=== PATIENT | male | born 1945 | race Caucasian/White ===

== ENCOUNTER 2022-11-23 09:22 | Emergency (ER) | payer OTHER ==
[~2022-11-23] VITALS: Ht 177.8 cm; Wt 172.4 kg
[2022-11-23 09:26] VITALS: BP_SYST 139
[2022-11-23] MEDS ORDERED: LIDOCAINE/EPI 1% 1:100000 20 ML VIAL ONE (09:27)
--- NOTE | 2022-11-23 09:30 | NUR ---
PT ARRIVES WITH BLEEDING UMBILCIAL HERNIA, DR SMITH AT BEDSIDE AND SUTURING BEING PERFORMED. PT TOLERATING IT WELL.
--- NOTE | 2022-11-23 09:50 | NUR ---
PT BIB BLS FROM HOME C/O BLEEDING AND PAIN FROM UPPER UMBILICAL HERNIA. BLS REPORTS LOST ABOUT 100CC BLOOD. PT HAS OOZING LARGE UMBILICAL HERNIA THAT BLEEDS FROM THE UPPER PORTION. PTS VSS RESTING IN BED WITH RAILS UP
--- NOTE | 2022-11-23 09:55 | NUR ---
DR SMITH CALLED TO BEDSIDE DUE TO BLEEDING, PRESSURE DRESSING PLACED TO UMBILICAL HERNIA. BLEEDING CONTROLLED.
[2022-11-23 10:20] VITALS: BP_SYST 139
--- NOTE | 2022-11-23 10:24 | NUR ---
Patient given written and verbal discharge instructions and verbalizes understanding. ER MD SMITH discussed with patient the results and treatment provided. Patient in stable condition. ID arm band removed. Patient educated on VERICOSE VEINS and to follow up with PMD. Pain Scale 0 . Opportunity for questions provided and answered.
== END 2022-11-23 10:24 | disposition home or self-care (01) ==
LOC: SED 09:22
DX: K42.9 Umbilical hernia without obstruction or gangrene (principal); J44.9 Chronic obstructive pulmonary disease, unspecified; Z79.899 Other long term (current) drug therapy
CPT/HCPCS: 99283

== ENCOUNTER 2024-04-17 19:05 | Inpatient (IN) | payer OTHER ==
[~2024-04-17] VITALS: Ht 172.7 cm; Wt 144.7 kg
[~2024-04-17 19:05] MED LIST: ALBU2.5V7 INH; ALBU90AE INH; ALLO100T PO; ATOR-449 PO; BUME1TAB8 PO; FLUT16SP16 NS; FLUT1BLS5 IH; LOSA100T24 PO; METF-379 PO; METO25TA6 PO; MONT-40 PO; NITSL SL; OMEP-268 PO; POTA-197 PO; PRAM2.254 PO; TOLT4CAP PO; VITD2000 PO
[2024-04-17 19:07] VITALS: BP_SYST 124; PULSE 112; RESP 20; TEMP 101.1; O2SAT 94
[2024-04-17 19:56] LABS: ABG O2 SAT% ESTIMATE 95.5 % (94.0-98.0); ALLEN'S TEST POSITIVE (P); BLOOD GAS BASE EXCESS 5.7 mmol/L (-2.0-3.0); BLOOD GAS PCO2 37.8 mmHg (35.0-48.0); BLOOD GAS PH 7.503 (7.350-7.450); BLOOD GAS PO2 70.5 mmHg (83.0-108.0)
[2024-04-17] MEDS: methylPREDNISolone SOD SUCC/PF 62.5 MG/ML VIAL IVP ONE (20:02)
[2024-04-17] MEDS: cefTRIAXone 1 GM IVPB PREMIX 50 ML IV ONE (20:03)
[2024-04-17 20:40] LABS: HEMOGLOBIN 13.3 g/dL (14.0-18.0); MEAN CORPUSCULAR HEMOGLOBIN 23 pg (27-31); MEAN CORPUSCULAR HGB CONC 32 % (32-36); MEAN CORPUSCULAR VOLUME 73 fL (79.0-98.0); RED BLOOD CELL COUNT(AUTO) 5.76 MIL/uL (4.2-6.2); RED CELL DISTRIBUTION WIDTH 20.5 % (9.0-15.0); WHITE BLOOD COUNT (AUTO) 28.8 K/uL (4.8-10.8)
[2024-04-17 20:44] LABS: ALANINE AMINOTRANSFERASE 44 U/L (12-78); ALBUMIN 3.2 g/dL (3.4-4.8); ANION GAP 7 (5-15); ASPARTATE AMINOTRANSFERASE 37 U/L (10-37); BILIRUBIN,DIRECT 0.3 mg/dL (0.0-0.3); CALCIUM 8.9 mg/dL (8.4-11.0); CARBON DIOXIDE 34 mmol/L (23-29); CHLORIDE 104 mmol/L (98-107); CREATININE 2.01 mg/dL (0.55-1.30); GLUCOSE 140 mg/dL (74-106); SODIUM SERUM 145 mmol/L (136-145); TOTAL PROTEIN, SERUM 7.3 g/dL (6.4-8.3); UREA NITROGEN, BLOOD 34 mg/dL (8-21)
[2024-04-17] MEDS: FUROSEMIDE 40 MG/4 ML VIAL IVP ONE (21:01)
[2024-04-17] MEDS ORDERED: AZITHROMYCIN 500 MG/VIAL (ZITHROMAX) IV ONE (21:04)
[2024-04-17] MEDS: MAGNESIUM SULFATE 50 ML IV ONE (21:07)
[2024-04-17 21:22] LABS: PLATELET COUNT (AUTO) 48 K/uL (130-430)
[2024-04-17 21:29] LABS: BAND % (MANUAL) 8 % (0-6)
[2024-04-17 21:30] LABS: ANISOCYTOSIS 1+; BASOPHILS % (MANUAL) 0 % (0-2); EOSINOPHILS % (MANUAL) 0 % (0-7); HYPOCHROMASIA 1+; LYMPHOCYTES % (MANUAL) 1 % (20-46); MONOCYTES % (MANUAL) 4 % (0-11); OVALOCYTES FEW; PLATELET ESTIMATE DECREASED (ADEQUATE); STOMATOCYTES FEW
[2024-04-17 23:09] LABS: BILIRUBIN,URINE NEGATIVE (NEGATIVE); CLARITY/URINE CLEAR (CLEAR); COLOR,URINE YELLOW (YELLOW); GLUCOSE,URINE NEGATIVE (NEGATIVE); KETONES,URINE NEGATIVE (NEGATIVE); LEUKOCYTE ESTERASE ,URINE NEGATIVE (NEGATIVE); NITRITE, URINE NEGATIVE (NEGATIVE); PROTEIN URINE 1+ (NEGATIVE); UROBILINOGEN,URINE 0.2 (0.2-1.0)
[2024-04-17] MEDS: AZITHROMYCIN 500 MG in NS 250 ML IV ONE (23:37)
[2024-04-17 23:41] LABS: BLOOD, URINE TRACE (NEGATIVE)
[2024-04-17 23:45] LABS: WBC,URINE 0-3 /HPF (0-3)
[2024-04-17 23:46] LABS: BACTERIA,URINE None Seen /HPF (None Seen)
[2024-04-17] MEDS: ENOXAPARIN SODIUM 120 MG/0.8 ML SYRINGE SUBCUT ONE (23:48)
[2024-04-17] MEDS ORDERED: ENOXAPARIN SODIUM 120 MG/0.8 ML SYRINGE ONE (23:49)
[2024-04-18] MEDS ORDERED: HYDR-3927 PO (00:02)
[2024-04-18] MEDS ORDERED: PRAM0.5T10 PO (00:02)
[2024-04-18] MEDS ORDERED: NYST15PO4 TP (00:02)
[2024-04-18] MEDS ORDERED: FURO40TA5 PO (00:02)
[2024-04-18] MEDS: D5/0.45 NS 1,000 ML IV SCH (00:47)
[2024-04-18 01:09] VITALS: BP_SYST 128; PULSE 94; RESP 20; TEMP 98.2; O2SAT 91
[2024-04-18 07:00] VITALS: O2SAT 95
[2024-04-18 08:00] VITALS: BP_SYST 135; PULSE 90; RESP 20; TEMP 97.6; O2SAT 96
[2024-04-18] MEDS: METHYLPREDNISOLONE SOD SUCC 40 MG/ML VIAL IVP SCH (08:26)
[2024-04-18] MEDS ORDERED: NITROGLYCERIN 0.4 MG TAB.SUBL SL PRN (12:00)
[2024-04-18] MEDS ORDERED: TOLTERODINE TARTRATE ER 2 MG CAP.ER.24H PO SCH (12:00)
[2024-04-18 12:33] VITALS: BP_SYST 126; PULSE 91; RESP 20; TEMP 99; O2SAT 92
[2024-04-18 12:55] LABS: CKMB RELATIVE INDEX 0.4 (0.0-2.9)
[2024-04-18 15:03] LABS: BILIRUBIN,URINE NEGATIVE (NEGATIVE); BLOOD, URINE 2+ (NEGATIVE); CLARITY/URINE CLEAR (CLEAR); COLOR,URINE YELLOW (YELLOW); GLUCOSE,URINE TRACE (NEGATIVE); KETONES,URINE NEGATIVE (NEGATIVE); LEUKOCYTE ESTERASE ,URINE NEGATIVE (NEGATIVE); NITRITE, URINE NEGATIVE (NEGATIVE); PROTEIN URINE 2+ (NEGATIVE); UROBILINOGEN,URINE 0.2 (0.2-1.0)
[2024-04-18 15:23] LABS: BACTERIA,URINE FEW /HPF (None Seen); RBC,URINE 0-3 /HPF (0-3); WBC,URINE 0-3 /HPF (0-3)
[2024-04-18 16:00] VITALS: BP_SYST 141; PULSE 91; RESP 18; TEMP 97.4; O2SAT 97
[2024-04-18 20:00] VITALS: BP_SYST 137; PULSE 85; RESP 20; TEMP 98.5; O2SAT 100
[2024-04-18] MEDS ORDERED: cefTRIAXone 1 GM VIAL IM SCH (20:00)
[2024-04-18] MEDS ORDERED: cefTRIAXone 1 GM VIAL IV SCH (20:00)
[2024-04-18] MEDS: CEFTRIAXONE SOD 1 GM/ D5W 50 ML IV SCH (20:18)
[2024-04-18] MEDS: oxyBUTYnin chloride 5 MG TABLET PO SCH (20:19)
[2024-04-18] MEDS: FUROSEMIDE 40 MG TABLET PO SCH (20:19)
[2024-04-18] MEDS: HYDROcodone/ACETAMIN 10-325 MG TAB PO PRN (20:19)
[2024-04-18] MEDS: METOPROLOL TARTRATE 25 MG TABLET PO SCH (20:20)
[2024-04-18] MEDS: BUMETANIDE 1 MG TABLET PO SCH (20:26)
[2024-04-18] MEDS: NYSTATIN 15 GM TOPICAL POWDER TP SCH (20:27)
[2024-04-18] MEDS: AZITHROMYCIN 500 MG in NS 250 ML IV SCH (21:29)
[2024-04-18] MEDS ORDERED: AZITHROMYCIN 250 MG in NS 250 ML IV SCH (23:00)
[2024-04-18] MEDS: ALLOPURINOL 100 MG TABLET (ZYLOPRIM) PO SCH (23:18)
[2024-04-19] VITALS (7 sets, daily range): BP systolic 119–148; PULSE 71–82; RESP 17–19; TEMP 98–98.3; O2SAT 92–99
[2024-04-19 07:32] LABS: URINE SODIUM, RANDOM 24 mmol/L (40-220)
[2024-04-19 08:16] LABS: BASOPHILS % (AUTO) 0.1 % (0.0-2.0); HEMATOCRIT 38.2 % (36-54); HEMOGLOBIN 11.5 g/dL (14.0-18.0); MEAN CORPUSCULAR HEMOGLOBIN 23 pg (27-31); MEAN CORPUSCULAR HGB CONC 30 % (32-36); MEAN CORPUSCULAR VOLUME 75 fL (79.0-98.0); MONOCYTES # (AUTO) 0.8 K/uL (0.0-1.0); MONOCYTES % (AUTO) 3.1 % (1.7-9.3); NEUTROPHILS # (AUTO) 22.6 K/uL (1.8-7.7); RED BLOOD CELL COUNT(AUTO) 5.08 MIL/uL (4.2-6.2); RED CELL DISTRIBUTION WIDTH 20.7 % (9.0-15.0); WHITE BLOOD COUNT (AUTO) 24.3 K/uL (4.8-10.8)
[2024-04-19 08:28] LABS: ANION GAP 9 (5-15); CALCIUM 8.6 mg/dL (8.4-11.0); CARBON DIOXIDE 31 mmol/L (23-29); CHLORIDE 106 mmol/L (98-107); CREATININE 1.57 mg/dL (0.55-1.30); GLUCOSE 231 mg/dL (74-106); SODIUM SERUM 146 mmol/L (136-145); UREA NITROGEN, BLOOD 33 mg/dL (8-21)
[2024-04-19 08:42] LABS: PLATELET COUNT (AUTO) 46 K/uL (130-430)
[2024-04-19 08:54] LABS: NEUTROPHILS % (AUTO) 92.8 % (40.0-70.0)
[2024-04-19] MEDS: NYSTATIN 15 GM TOPICAL POWDER TP SCH (21:12)
[2024-04-19] MEDS: AMPICILLIN SODIUM/SULBACTAM NA 3 GM in NS 100 ML IV SCH (21:19)
[2024-04-20 01:45] VITALS: PULSE 50
[2024-04-20 03:01] VITALS: PULSE 65
[2024-04-20 07:17] LABS: BASOPHILS % (AUTO) 0.1 % (0.0-2.0); HEMATOCRIT 39.1 % (36-54); HEMOGLOBIN 11.9 g/dL (14.0-18.0); LYMPHOCYTES # (AUTO) 0.9 K/uL (1.0-5.5); LYMPHOCYTES % (AUTO) 5.8 % (20.5-51.5); MEAN CORPUSCULAR HEMOGLOBIN 23 pg (27-31); MEAN CORPUSCULAR HGB CONC 31 % (32-36); MEAN CORPUSCULAR VOLUME 74 fL (79.0-98.0); MONOCYTES # (AUTO) 0.3 K/uL (0.0-1.0); MONOCYTES % (AUTO) 2.4 % (1.7-9.3); NEUTROPHILS # (AUTO) 13.3 K/uL (1.8-7.7); NEUTROPHILS % (AUTO) 91.7 % (40.0-70.0); PLATELET COUNT (AUTO) 52 K/uL (130-430); RED BLOOD CELL COUNT(AUTO) 5.27 MIL/uL (4.2-6.2); RED CELL DISTRIBUTION WIDTH 20.2 % (9.0-15.0); WHITE BLOOD COUNT (AUTO) 14.6 K/uL (4.8-10.8)
[2024-04-20 07:28] LABS: ERYTHROCYTE SEDIMENTATION RATE 118 MM/HR (0-15)
[2024-04-20 07:40] LABS: ALANINE AMINOTRANSFERASE 42 U/L (12-78); ALBUMIN 2.4 g/dL (3.4-4.8); ANION GAP 10 (5-15); ASPARTATE AMINOTRANSFERASE 32 U/L (10-37); CALCIUM 8.3 mg/dL (8.4-11.0); CARBON DIOXIDE 29 mmol/L (23-29); CHLORIDE 105 mmol/L (98-107); CREATININE 1.45 mg/dL (0.55-1.30); GLUCOSE 233 mg/dL (74-106); PHOSPHORUS 2.7 mg/dL (2.7-4.5); POTASSIUM 3.7 mmol/L (3.5-5.1); SODIUM SERUM 144 mmol/L (136-145); TOTAL BILIRUBIN 0.4 mg/dL (0.0-1.0); TOTAL PROTEIN, SERUM 6.5 g/dL (6.4-8.3); UREA NITROGEN, BLOOD 39 mg/dL (8-21)
[2024-04-20 08:00] VITALS: BP_SYST 141; PULSE 74; RESP 20; TEMP 98.1; O2SAT 98
[2024-04-20 12:42] VITALS: BP_SYST 138; PULSE 70; RESP 19; TEMP 98.2; O2SAT 98
[2024-04-20 16:49] VITALS: BP_SYST 140; PULSE 66; RESP 18; TEMP 98; O2SAT 97
[2024-04-20 20:00] VITALS: BP_SYST 143; PULSE 62; RESP 18; TEMP 98.9; O2SAT 96
[2024-04-21] VITALS (7 sets, daily range): BP systolic 126–143; PULSE 54–73; RESP 17–20; TEMP 97.3–98.1; O2SAT 92–98
[2024-04-21 06:52] LABS: BASOPHILS % (AUTO) 0.2 % (0.0-2.0); HEMATOCRIT 41.4 % (36-54); HEMOGLOBIN 12.8 g/dL (14.0-18.0); LYMPHOCYTES % (AUTO) 6.8 % (20.5-51.5); MEAN CORPUSCULAR HEMOGLOBIN 23 pg (27-31); MEAN CORPUSCULAR HGB CONC 31 % (32-36); MEAN CORPUSCULAR VOLUME 74 fL (79.0-98.0); MONOCYTES # (AUTO) 0.5 K/uL (0.0-1.0); MONOCYTES % (AUTO) 3.9 % (1.7-9.3); NEUTROPHILS # (AUTO) 12.5 K/uL (1.8-7.7); NEUTROPHILS % (AUTO) 89.1 % (40.0-70.0); PLATELET COUNT (AUTO) 74 K/uL (130-430); RED BLOOD CELL COUNT(AUTO) 5.61 MIL/uL (4.2-6.2); RED CELL DISTRIBUTION WIDTH 20.3 % (9.0-15.0)
[2024-04-21 07:09] LABS: ANION GAP 8 (5-15); CALCIUM 8.6 mg/dL (8.4-11.0); CARBON DIOXIDE 32 mmol/L (23-29); CHLORIDE 102 mmol/L (98-107); CREATININE 1.44 mg/dL (0.55-1.30); GLUCOSE 219 mg/dL (74-106); PHOSPHORUS 3.3 mg/dL (2.7-4.5); SODIUM SERUM 142 mmol/L (136-145); UREA NITROGEN, BLOOD 39 mg/dL (8-21)
[2024-04-21 07:24] LABS: ERYTHROCYTE SEDIMENTATION RATE 117 MM/HR (0-15)
[2024-04-22] VITALS (9 sets, daily range): BP systolic 109–154; PULSE 55–88; RESP 16–20; TEMP 97–97.9; O2SAT 96–98
[2024-04-22 06:43] LABS: BASOPHILS % (AUTO) 0.1 % (0.0-2.0); HEMATOCRIT 38.7 % (36-54); HEMOGLOBIN 12.2 g/dL (14.0-18.0); LYMPHOCYTES # (AUTO) 1.2 K/uL (1.0-5.5); LYMPHOCYTES % (AUTO) 8.6 % (20.5-51.5); MEAN CORPUSCULAR HEMOGLOBIN 23 pg (27-31); MEAN CORPUSCULAR HGB CONC 31 % (32-36); MEAN CORPUSCULAR VOLUME 73 fL (79.0-98.0); MONOCYTES # (AUTO) 0.8 K/uL (0.0-1.0); MONOCYTES % (AUTO) 5.6 % (1.7-9.3); NEUTROPHILS # (AUTO) 12.3 K/uL (1.8-7.7); NEUTROPHILS % (AUTO) 85.7 % (40.0-70.0); PLATELET COUNT (AUTO) 92 K/uL (130-430); RED BLOOD CELL COUNT(AUTO) 5.29 MIL/uL (4.2-6.2); RED CELL DISTRIBUTION WIDTH 20.2 % (9.0-15.0); WHITE BLOOD COUNT (AUTO) 14.4 K/uL (4.8-10.8)
[2024-04-22 07:48] LABS: ERYTHROCYTE SEDIMENTATION RATE 70 MM/HR (0-15)
[2024-04-22 08:01] LABS: ANION GAP 8 (5-15); CALCIUM 8.3 mg/dL (8.4-11.0); CARBON DIOXIDE 33 mmol/L (23-29); CHLORIDE 102 mmol/L (98-107); CREATININE 1.31 mg/dL (0.55-1.30); GLUCOSE 242 mg/dL (74-106); PHOSPHORUS 3.2 mg/dL (2.7-4.5); POTASSIUM 3.8 mmol/L (3.5-5.1); SODIUM SERUM 143 mmol/L (136-145); UREA NITROGEN, BLOOD 36 mg/dL (8-21)
[2024-04-22] MEDS: CALCIUM GLUCONATE 2 GM in NS 100 ML IV ONE (14:27)
[2024-04-23] VITALS (9 sets, daily range): BP systolic 136–172; PULSE 55–76; RESP 18–20; TEMP 96.6–98.3; O2SAT 93–100
[2024-04-23 07:34] LABS: BASOPHILS % (AUTO) 0.1 % (0.0-2.0); HEMATOCRIT 44.6 % (36-54); HEMOGLOBIN 13.9 g/dL (14.0-18.0); LYMPHOCYTES # (AUTO) 1.7 K/uL (1.0-5.5); LYMPHOCYTES % (AUTO) 7.9 % (20.5-51.5); MEAN CORPUSCULAR HEMOGLOBIN 23 pg (27-31); MEAN CORPUSCULAR HGB CONC 31 % (32-36); MEAN CORPUSCULAR VOLUME 73 fL (79.0-98.0); MONOCYTES # (AUTO) 0.7 K/uL (0.0-1.0); MONOCYTES % (AUTO) 3.4 % (1.7-9.3); NEUTROPHILS # (AUTO) 19.4 K/uL (1.8-7.7); PLATELET COUNT (AUTO) 160 K/uL (130-430); RED BLOOD CELL COUNT(AUTO) 6.11 MIL/uL (4.2-6.2); RED CELL DISTRIBUTION WIDTH 20.1 % (9.0-15.0); WHITE BLOOD COUNT (AUTO) 21.9 K/uL (4.8-10.8)
[2024-04-23 07:46] LABS: ALANINE AMINOTRANSFERASE 64 U/L (12-78); ALBUMIN 2.9 g/dL (3.4-4.8); ANION GAP 6 (5-15); ASPARTATE AMINOTRANSFERASE 28 U/L (10-37); CALCIUM 8.7 mg/dL (8.4-11.0); CARBON DIOXIDE 34 mmol/L (23-29); CHLORIDE 100 mmol/L (98-107); CREATININE 1.58 mg/dL (0.55-1.30); GLUCOSE 256 mg/dL (74-106); PHOSPHORUS 4.4 mg/dL (2.7-4.5); POTASSIUM 3.9 mmol/L (3.5-5.1); SODIUM SERUM 140 mmol/L (136-145); TOTAL BILIRUBIN 0.7 mg/dL (0.0-1.0); UREA NITROGEN, BLOOD 42 mg/dL (8-21)
[2024-04-23 08:02] LABS: ERYTHROCYTE SEDIMENTATION RATE 75 MM/HR (0-15)
[2024-04-23 10:08] LABS: ANISOCYTOSIS 1+; HYPOCHROMASIA 1+; NEUTROPHILS % (AUTO) 88.6 % (40.0-70.0)
[2024-04-23] MEDS: cefTRIAXone 1 GM IVPB PREMIX 50 ML IV SCH (16:45)
[2024-04-23 21:07] LABS: MYCOPLASMA PNEUMONIAE IgM <770 U/mL (0-769)
[2024-04-24] VITALS (7 sets, daily range): BP systolic 126–157; PULSE 46–75; RESP 18–20; TEMP 96.8–97.8; O2SAT 96–97
[2024-04-24 00:06] LABS: COCCIDIOIDES AB IGG 0.2 IV (<=0.9); COCCIDIOIDES AB IGM 0.3 IV (<=0.9)
[2024-04-24] MEDS: predniSONE 20 MG TABLET PO SCH (08:29)
[2024-04-25] VITALS: BP_SYST 117; PULSE 60; RESP 18; TEMP 97.1; O2SAT 99
[2024-04-25 07:56] LABS: BASOPHILS # (AUTO) 0.1 K/uL (0.0-0.2); BASOPHILS % (AUTO) 0.4 % (0.0-2.0); EOSINOPHILS # (AUTO) 0.2 K/uL (0.0-0.4); EOSINOPHILS % (AUTO) 1.4 % (0.0-4.0); HEMATOCRIT 42.8 % (36-54); HEMOGLOBIN 13.2 g/dL (14.0-18.0); LYMPHOCYTES # (AUTO) 2.7 K/uL (1.0-5.5); MEAN CORPUSCULAR HEMOGLOBIN 23 pg (27-31); MEAN CORPUSCULAR HGB CONC 31 % (32-36); MEAN CORPUSCULAR VOLUME 74 fL (79.0-98.0); MONOCYTES # (AUTO) 0.7 K/uL (0.0-1.0); MONOCYTES % (AUTO) 5.1 % (1.7-9.3); NEUTROPHILS # (AUTO) 10.7 K/uL (1.8-7.7); NEUTROPHILS % (AUTO) 74.1 % (40.0-70.0); PLATELET COUNT (AUTO) 148 K/uL (130-430); RED CELL DISTRIBUTION WIDTH 20.4 % (9.0-15.0); WHITE BLOOD COUNT (AUTO) 14.4 K/uL (4.8-10.8)
[2024-04-25 08:30] VITALS: BP_SYST 151; PULSE 81; RESP 20; TEMP 98; O2SAT 95
[2024-04-25] MEDS: FUROSEMIDE 40 MG TABLET PO SCH (08:42)
[2024-04-25 09:25] VITALS: PULSE 70; O2SAT 99
[2024-04-25 09:30] VITALS: O2SAT 98
[2024-04-25 10:12] LABS: ANION GAP 8 (5-15); CALCIUM 8.1 mg/dL (8.4-11.0); CARBON DIOXIDE 34 mmol/L (23-29); CHLORIDE 102 mmol/L (98-107); CREATININE 1.42 mg/dL (0.55-1.30); GLUCOSE 110 mg/dL (74-106); POTASSIUM 3.4 mmol/L (3.5-5.1); SODIUM SERUM 144 mmol/L (136-145); UREA NITROGEN, BLOOD 36 mg/dL (8-21)
[2024-04-25] MEDS: levoFLOXacin 500 MG TABLET PO SCH (10:47)
[2024-04-25] MEDS ORDERED: PRED20TA PO (11:12)
[2024-04-25] MEDS ORDERED: LEVO-62 PO (11:12)
[2024-04-25] MEDS: POTASSIUM CHLORIDE 20 MEQ TABLET.ER PO ONE (11:50)
[2024-04-25 12:00] VITALS: BP_SYST 109; PULSE 65; RESP 17; TEMP 97.3; O2SAT 97
[2024-04-25 12:43] VITALS: BP_SYST 110; PULSE 66; RESP 16; TEMP 97.2; O2SAT 95
== END 2024-04-25 14:25 | DRG 871 ==
LOC: SED 19:05 → STU 23:35 → SMU 04-25 03:00
PROVIDERS: ADMIT Specialist; ATTEND Specialist
PROC: 5A09357 Assistance with Respiratory Ventilation, Less than 24 Consecutive Hours, Continuous Positive Airway Pressure (ICD-10-PCS; principal; 2024-04-24)
DX: A40.8 Other streptococcal sepsis (principal); E43 Unspecified severe protein-calorie malnutrition; J96.21 Acute and chronic respiratory failure with hypoxia; J18.9 Pneumonia, unspecified organism; E87.4 Mixed disorder of acid-base balance; I42.9 Cardiomyopathy, unspecified; I13.0 Hypertensive heart and chronic kidney disease with heart failure and stage 1 through stage 4 chronic kidney disease, or unspecified chronic kidney disease; N17.9 Acute kidney failure, unspecified; E87.1 Hypo-osmolality and hyponatremia; Z68.42 Body mass index [BMI] 45.0-49.9, adult; L03.116 Cellulitis of left lower limb; L03.115 Cellulitis of right lower limb; J44.1 Chronic obstructive pulmonary disease with (acute) exacerbation; J44.0 Chronic obstructive pulmonary disease with (acute) lower respiratory infection; D69.6 Thrombocytopenia, unspecified; I50.9 Heart failure, unspecified; E66.01 Morbid (severe) obesity due to excess calories; E11.65 Type 2 diabetes mellitus with hyperglycemia; E11.21 Type 2 diabetes mellitus with diabetic nephropathy; N18.31 Chronic kidney disease, stage 3a; D64.9 Anemia, unspecified; E11.22 Type 2 diabetes mellitus with diabetic chronic kidney disease; M10.9 Gout, unspecified; G47.33 Obstructive sleep apnea (adult) (pediatric); E83.52 Hypercalcemia; E78.5 Hyperlipidemia, unspecified; I87.2 Venous insufficiency (chronic) (peripheral); Z91.040 Latex allergy status
CPT/HCPCS: 36415; 36600; 70450-TC; 71045; 76770; 80048; 80053; 80076; 81000; 81001; 81015; 82140; 82550; 82553; 82570; 82803; 83605; 83690; 83735; 83880; 84100; 84302; 84484; 85007; 85025; 85027; 85651; 86635; 86738; 87040; 87070; 87186; 87205; 87449; 93005; 94070; 94660; 94760; 97110-GP; 97116-GP; 97530-GP; 99285; G0378; J0295; J0456; J0612; J0696; J1030; J1650; J1940; J2930; J3475; J7050; J7060; J7512